=== PATIENT | female | born 1960 | race Caucasian/White ===

== ENCOUNTER 2017-01-27 10:04 | Emergency (ER) | payer BC ==
[2017-01-27 11:14] LABS: RED BLOOD COUNT 4.44 M/UL (4.00-5.10); WHITE BLOOD COUNT 5.6 K/UL (4.5-11.0)
[2017-01-27 11:37] LABS: BUN/CREATININE RATIO 16 (0-10)
== END 2017-01-27 16:06 | disposition home or self-care (01) ==
LOC: ER1 10:04
PROVIDERS: Family Medicine
DX: R42 Dizziness and giddiness (principal); I10 Essential (primary) hypertension; E11.65 Type 2 diabetes mellitus with hyperglycemia; R10.13 Epigastric pain; R11.0 Nausea; R07.9 Chest pain, unspecified; Z90.49 Acquired absence of other specified parts of digestive tract; Z79.82 Long term (current) use of aspirin; Z79.899 Other long term (current) drug therapy; Z79.84 Long term (current) use of oral hypoglycemic drugs
CPT/HCPCS: 36415; 71010; 80053; 82550; 82553; 83690; 83874; 84484; 85025; 93005; 96374; 96375; 99284; C9113; J2405

== ENCOUNTER 2020-10-04 11:21 | Emergency (ER) | payer BC ==
[~2020-10-04 11:21] MED LIST: ASPIRIN EC81 MG PO; ATORVASTATIN CA20 MG PO; BENTYL 20MG TAB20 MG PO; CALCIUM500 M1 PO; GLUCOPHAGE 500500 MG PO; IMDUR ER TAB 3030 MG PO; IRON240 MG PO; LISINOPRIL10 MG PO; NAPROXEN500 MG PO; VITAMIN B-1250 MCG PO; VITAMIN D325 MC6 PO; ZOFRAN4 MG PO
[2020-10-04] MEDS ORDERED: DECADRON6 MG PO (13:35)
[2020-10-04] MEDS ORDERED: ZITHROMAX250 MG PO (13:35)
[2020-10-04] MEDS ORDERED: PROVENTIL HFA6.7 GM INH (13:35)
== END 2020-10-04 13:48 | disposition home or self-care (01) ==
LOC: ER1 11:21
DX: U07.1 COVID-19 (principal); J12.82 Pneumonia due to coronavirus disease 2019; I10 Essential (primary) hypertension; E11.9 Type 2 diabetes mellitus without complications
CPT/HCPCS: 71045; 99284

== ENCOUNTER 2020-10-13 07:58 | Emergency (ER) | payer BC ==
[~2020-10-13 07:58] MED LIST changes: +DECADRON6 MG PO; +PROVENTIL HFA6.7 GM INH; +ZITHROMAX250 MG PO
[2020-10-13 09:59] LABS: HEMOGLOBIN 13.7 gm/dl (12.3-15.3); RED BLOOD COUNT 4.6 M/UL (4.00-5.10); WHITE BLOOD COUNT 9.9 K/UL (4.5-11.0)
[2020-10-13 10:26] LABS: BUN/CREATININE RATIO 31 (0-10)
[2020-10-13] MEDS ORDERED: OMNICEF 300 MG300 MG PO (14:45)
[2020-10-13] MEDS ORDERED: ZOFRAN4 MG PO (14:45)
== END 2020-10-13 15:30 | disposition home or self-care (01) ==
LOC: ER1 07:58
PROVIDERS: Physician Assistant Medical
DX: J18.9 Pneumonia, unspecified organism (principal); I10 Essential (primary) hypertension; E11.9 Type 2 diabetes mellitus without complications; Z86.16 Personal history of COVID-19
CPT/HCPCS: 71045; 80053; 81001; 83605; 84484; 85025; 87040; 93005; 96365; 99285; J0696; J7030

== ENCOUNTER 2021-04-20 12:03 | Emergency (ER) | payer BC ==
[~2021-04-20 12:03] MED LIST changes: +OMNICEF 300 MG300 MG PO
[2021-04-20] MEDS ORDERED: CYCLOBENZAPRINE10 MG PO (14:17)
[2021-04-20] MEDS ORDERED: NAPROSYN500 MG PO (14:17)
== END 2021-04-20 15:14 | disposition home or self-care (01) ==
LOC: ER1 12:03
DX: S29.012A Strain of muscle and tendon of back wall of thorax, initial encounter (principal); R07.81 Pleurodynia; E11.9 Type 2 diabetes mellitus without complications; I10 Essential (primary) hypertension; E78.5 Hyperlipidemia, unspecified; Z90.89 Acquired absence of other organs; F17.200 Nicotine dependence, unspecified, uncomplicated; X50.0XXA Overexertion from strenuous movement or load, initial encounter
CPT/HCPCS: 71046; 96372; 99283; J1885

== ENCOUNTER 2021-10-11 14:55 | Emergency (ER) | payer BC ==
[~2021-10-11 14:55] MED LIST changes: +CYCLOBENZAPRINE10 MG PO; +NAPROSYN500 MG PO
[2021-10-11] MEDS ORDERED: MOBIC15 MG PO (16:34)
== END 2021-10-11 16:48 | disposition home or self-care (01) ==
LOC: ER1 14:55
DX: S93.401A Sprain of unspecified ligament of right ankle, initial encounter (principal); E10.9 Type 1 diabetes mellitus without complications; X50.9XXA Other and unspecified overexertion or strenuous movements or postures, initial encounter; Y92.009 Unspecified place in unspecified non-institutional (private) residence as the place of occurrence of the external cause
CPT/HCPCS: 73610; 99283